=== PATIENT | female | born 1935 | race Caucasian/White ===

== ENCOUNTER 2020-04-14 15:03 | Inpatient (IN) ==
[2020-04-15] MEDS: *HR* OxyCODONE Immed Rel 5 MG TABLET PO PRN (04:19)
[2020-04-15] MEDS ORDERED: Lactulose Oral Soln 20 GM/30 ML UDC PO PRN (08:01)
[2020-04-15] MEDS: Folic Acid 1 MG TABLET PO SCH (08:34)
[2020-04-15] MEDS: Sennosides/Docusate Sodium TABLET PO SCH ×2 (08:34→20:32)
[2020-04-15] MEDS: GlipiZIDE 5 MG TABLET PO SCH ×2 (08:34→16:39)
[2020-04-15] MEDS: *HR* Pioglitazone 15 MG TABLET PO SCH (08:34)
[2020-04-15] MEDS: Cholecalciferol (D-3) 1,000 UNIT (25MCG) TABLET PO SCH (08:35)
[2020-04-15] MEDS: Aspirin Enteric Coated 325 MG Tablet PO SCH (08:35)
[2020-04-15] MEDS: Acetaminophen 325 MG TABLET PO PRN (08:35)
[2020-04-15 08:39] LABS: Basophils % 0.1 %; Eosinophils % 0.4 %; Hematocrit 26.7 % (35.3-44.9); Hemoglobin 8.7 g/dL (11.5-15.4); Immature Granulocytes % 0.8 % (0-4); Lymphocytes # 1.9 K/mcL (0.6-4.6); Lymphocytes % 25.8 %; Mean Corpuscular HGB Conc 32.6 g/dL (31.6-35.5); Mean Corpuscular Hemoglobin 29.5 pg (28.0-33.3); Mean Corpuscular Volume 90.5 fL (83.0-100.0); Mean Platelet Volume 9.9 fL (9.4-12.4); Monocytes # 0.7 K/mcL (0.0-1.3); Monocytes % 9.2 %; Neutrophils # 4.7 K/mcL (1.6-8.9); Platelet Count 169 K/mcL (140-400); Red Blood Count 2.95 M/mcL (3.82-4.97); Red Cell Distribution Width 15.4 % (11.5-14.5); Segmented Neutrophils % 63.7 %; White Blood Count 7.4 K/mcL (4.3-11.1)
[2020-04-15 08:52] LABS: Alanine Aminotransferase 3 Units/L (7-52); Albumin 2.4 g/dL (3.5-5.7); Albumin/Globulin Ratio 0.9 (1.1-2.2); Alkaline Phosphatase 59 Units/L (34-104); Aspartate Amino Transferase 17 Units/L (13-39); BUN/Creatinine Ratio 21 (6-26); Bilirubin,Total 0.6 mg/dL (0.3-1.0); Blood Urea Nitrogen 15 mg/dL (8-23); Calcium 7.4 mg/dL (8.6-10.3); Carbon Dioxide 28 mEq/L (23-29); Chloride 107 mEq/L (98-107); Globulin 2.8 g/dL (2.4-3.5); Glucose 120 mg/dL (70-105); Osmolality,Calculated 292 (280-300); Potassium 3.7 mEq/L (3.5-5.1); Sodium 140 mEq/L (136-145); Total Protein 5.2 g/dL (6.4-8.9); eGFR For African Americans > 60 (> 60); eGFR For Non-African Americans > 60 (> 60)
[2020-04-16] MEDS: GlipiZIDE 5 MG TABLET PO SCH ×2 (08:04→17:10)
[2020-04-16] MEDS: Sennosides/Docusate Sodium TABLET PO SCH ×2 (08:04→22:16)
[2020-04-16] MEDS: *HR* Pioglitazone 15 MG TABLET PO SCH (08:04)
[2020-04-16] MEDS: Aspirin Enteric Coated 325 MG Tablet PO SCH (08:05)
[2020-04-16] MEDS: Cholecalciferol (D-3) 1,000 UNIT (25MCG) TABLET PO SCH (08:05)
[2020-04-16] MEDS: Folic Acid 1 MG TABLET PO SCH (08:05)
[2020-04-16] MEDS: *HR* OxyCODONE Immed Rel 5 MG TABLET PO PRN (14:28)
[2020-04-17] MEDS: *HR* OxyCODONE Immed Rel 5 MG TABLET PO PRN ×2 (04:02→14:12)
[2020-04-17] MEDS ORDERED: NON-FORMULARY MEDICATION 1 EACH EACH (Alendronate Sodium [Fosamax] 70 MG) PO SCH (09:00)
[2020-04-17] MEDS: *HR* Pioglitazone 15 MG TABLET PO SCH (09:30)
[2020-04-17] MEDS: Folic Acid 1 MG TABLET PO SCH (09:30)
[2020-04-17] MEDS: GlipiZIDE 5 MG TABLET PO SCH ×2 (09:30→17:14)
[2020-04-17] MEDS: FLUoxetine 20 MG CAPSULE PO SCH (09:31)
[2020-04-17] MEDS: Aspirin Enteric Coated 325 MG Tablet PO SCH (09:31)
[2020-04-17] MEDS: Sennosides/Docusate Sodium TABLET PO SCH ×2 (09:31→19:58)
[2020-04-17] MEDS: Cholecalciferol (D-3) 1,000 UNIT (25MCG) TABLET PO SCH (09:31)
[2020-04-18] MEDS: *HR* OxyCODONE Immed Rel 5 MG TABLET PO PRN ×3 (05:59→21:53)
[2020-04-18] MEDS: *HR* Pioglitazone 15 MG TABLET PO SCH (08:21)
[2020-04-18] MEDS: Sennosides/Docusate Sodium TABLET PO SCH ×2 (08:22→21:53)
[2020-04-18] MEDS: GlipiZIDE 5 MG TABLET PO SCH ×2 (08:22→17:27)
[2020-04-18] MEDS: Cholecalciferol (D-3) 1,000 UNIT (25MCG) TABLET PO SCH (08:22)
[2020-04-18] MEDS: Folic Acid 1 MG TABLET PO SCH (08:22)
[2020-04-18] MEDS: Aspirin Enteric Coated 325 MG Tablet PO SCH (08:22)
[2020-04-19] MEDS: *HR* OxyCODONE Immed Rel 5 MG TABLET PO PRN ×2 (08:07→20:29)
[2020-04-19] MEDS: Aspirin Enteric Coated 325 MG Tablet PO SCH (08:07)
[2020-04-19] MEDS: GlipiZIDE 5 MG TABLET PO SCH ×2 (08:07→17:03)
[2020-04-19] MEDS: Sennosides/Docusate Sodium TABLET PO SCH ×2 (08:08→20:28)
[2020-04-19] MEDS: Folic Acid 1 MG TABLET PO SCH (08:08)
[2020-04-19] MEDS: *HR* Pioglitazone 15 MG TABLET PO SCH (08:08)
[2020-04-19] MEDS: Cholecalciferol (D-3) 1,000 UNIT (25MCG) TABLET PO SCH (08:08)
[2020-04-19] MEDS: FLUoxetine 20 MG CAPSULE PO SCH (08:08)
[2020-04-19 08:27] LABS: Basophils % 0.3 %; Eosinophils # 0.1 K/mcL (0.0-0.6); Eosinophils % 1.7 %; Hematocrit 27.1 % (35.3-44.9); Hemoglobin 8.5 g/dL (11.5-15.4); Immature Granulocytes % 0.6 % (0-4); Lymphocytes # 1.7 K/mcL (0.6-4.6); Lymphocytes % 24.5 %; Mean Corpuscular HGB Conc 31.4 g/dL (31.6-35.5); Mean Corpuscular Hemoglobin 28.5 pg (28.0-33.3); Mean Corpuscular Volume 90.9 fL (83.0-100.0); Mean Platelet Volume 9.7 fL (9.4-12.4); Monocytes # 0.8 K/mcL (0.0-1.3); Monocytes % 11.3 %; Neutrophils # 4.3 K/mcL (1.6-8.9); Platelet Count 189 K/mcL (140-400); Red Blood Count 2.98 M/mcL (3.82-4.97); Red Cell Distribution Width 15.9 % (11.5-14.5); Segmented Neutrophils % 61.6 %
[2020-04-19 08:51] LABS: BUN/Creatinine Ratio 30 (6-26); Blood Urea Nitrogen 26 mg/dL (8-23); Carbon Dioxide 28 mEq/L (23-29); Chloride 102 mEq/L (98-107); Glucose 63 mg/dL (70-105); Osmolality,Calculated 283 (280-300); Potassium 3.8 mEq/L (3.5-5.1); Sodium 135 mEq/L (136-145); eGFR For African Americans > 60 (> 60); eGFR For Non-African Americans > 60 (> 60)
[2020-04-19] MEDS: Acetaminophen 325 MG TABLET PO PRN (10:47)
[2020-04-20] MEDS: *HR* Pioglitazone 15 MG TABLET PO SCH (10:03)
[2020-04-20] MEDS: Sennosides/Docusate Sodium TABLET PO SCH ×2 (10:03→20:10)
[2020-04-20] MEDS: Aspirin Enteric Coated 325 MG Tablet PO SCH (10:03)
[2020-04-20] MEDS: Folic Acid 1 MG TABLET PO SCH (10:03)
[2020-04-20] MEDS: Cholecalciferol (D-3) 1,000 UNIT (25MCG) TABLET PO SCH (10:03)
[2020-04-20] MEDS: GlipiZIDE 5 MG TABLET PO SCH ×2 (10:03→17:54)
[2020-04-21] MEDS: Acetaminophen 325 MG TABLET PO PRN ×2 (01:01→20:21)
[2020-04-21] MEDS: Cholecalciferol (D-3) 1,000 UNIT (25MCG) TABLET PO SCH (08:25)
[2020-04-21] MEDS: Sennosides/Docusate Sodium TABLET PO SCH ×2 (08:25→20:21)
[2020-04-21] MEDS: GlipiZIDE 5 MG TABLET PO SCH ×2 (08:26→17:33)
[2020-04-21] MEDS: *HR* Pioglitazone 15 MG TABLET PO SCH (08:26)
[2020-04-21] MEDS: Aspirin Enteric Coated 325 MG Tablet PO SCH (08:26)
[2020-04-21] MEDS: Folic Acid 1 MG TABLET PO SCH (08:26)
[2020-04-21] MEDS: FLUoxetine 20 MG CAPSULE PO SCH (08:26)
[2020-04-21] MEDS ORDERED: *HR* Dextrose 50 % in Water (Vial) 50 ML VIAL IVP PRN (13:00)
[2020-04-21] MEDS ORDERED: Dextrose Gel 15 GM/37.5 ML TUBE PO PRN ×2 (13:00)
[2020-04-21] MEDS ORDERED: D5% in Water 1,000 ML IVC PRN (13:00)
[2020-04-21] MEDS: Insulin LISPRO 300 UNITS/3 ML VIAL SQ SCH (17:34)
[2020-04-22] MEDS: Insulin LISPRO 300 UNITS/3 ML VIAL SQ SCH ×3 (00:57→20:32)
[2020-04-22] MEDS: GlipiZIDE 5 MG TABLET PO SCH ×2 (07:51→17:59)
[2020-04-22] MEDS: Aspirin Enteric Coated 325 MG Tablet PO SCH (09:55)
[2020-04-22] MEDS: Folic Acid 1 MG TABLET PO SCH (09:55)
[2020-04-22] MEDS: FLUoxetine 20 MG CAPSULE PO SCH (09:55)
[2020-04-22] MEDS: *HR* Pioglitazone 15 MG TABLET PO SCH (09:55)
[2020-04-22] MEDS: Sennosides/Docusate Sodium TABLET PO SCH ×2 (09:55→20:25)
[2020-04-22] MEDS: Cholecalciferol (D-3) 1,000 UNIT (25MCG) TABLET PO SCH (09:55)
[2020-04-22] MEDS: *HR* OxyCODONE Immed Rel 5 MG TABLET PO PRN (18:03)
[2020-04-23] MEDS: Insulin LISPRO 300 UNITS/3 ML VIAL SQ SCH ×6 (04:35→21:31)
[2020-04-23 08:19] LABS: Basophils % 0.4 %; Eosinophils # 0.1 K/mcL (0.0-0.6); Eosinophils % 1.3 %; Hematocrit 26.8 % (35.3-44.9); Hemoglobin 8.3 g/dL (11.5-15.4); Immature Granulocytes % 0.5 % (0-4); Lymphocytes # 1.3 K/mcL (0.6-4.6); Lymphocytes % 23.1 %; Mean Corpuscular Hemoglobin 28.7 pg (28.0-33.3); Mean Corpuscular Volume 92.7 fL (83.0-100.0); Monocytes # 0.5 K/mcL (0.0-1.3); Monocytes % 9.7 %; Neutrophils # 3.6 K/mcL (1.6-8.9); Platelet Count 179 K/mcL (140-400); Red Blood Count 2.89 M/mcL (3.82-4.97); Red Cell Distribution Width 16.4 % (11.5-14.5); White Blood Count 5.5 K/mcL (4.3-11.1)
[2020-04-23 08:34] LABS: BUN/Creatinine Ratio 23 (6-26); Blood Urea Nitrogen 18 mg/dL (8-23); Calcium 7.7 mg/dL (8.6-10.3); Carbon Dioxide 27 mEq/L (23-29); Chloride 106 mEq/L (98-107); Glucose 65 mg/dL (70-105); Osmolality,Calculated 286 (280-300); Potassium 3.9 mEq/L (3.5-5.1); Sodium 138 mEq/L (136-145); eGFR For African Americans > 60 (> 60); eGFR For Non-African Americans > 60 (> 60)
[2020-04-23] MEDS: *HR* Pioglitazone 15 MG TABLET PO SCH (08:38)
[2020-04-23] MEDS: Cholecalciferol (D-3) 1,000 UNIT (25MCG) TABLET PO SCH (08:38)
[2020-04-23] MEDS: FLUoxetine 20 MG CAPSULE PO SCH (08:38)
[2020-04-23] MEDS: Aspirin Enteric Coated 325 MG Tablet PO SCH (08:38)
[2020-04-23] MEDS: Folic Acid 1 MG TABLET PO SCH (08:39)
[2020-04-23] MEDS: Sennosides/Docusate Sodium TABLET PO SCH ×2 (08:39→20:22)
[2020-04-23] MEDS: GlipiZIDE 5 MG TABLET PO SCH ×2 (08:39→17:34)
[2020-04-24] MEDS: *HR* OxyCODONE Immed Rel 5 MG TABLET PO PRN (03:26)
[2020-04-24] MEDS: Insulin LISPRO 300 UNITS/3 ML VIAL SQ SCH ×4 (08:02→21:07)
[2020-04-24] MEDS: *HR* Pioglitazone 15 MG TABLET PO SCH (08:06)
[2020-04-24] MEDS: FLUoxetine 20 MG CAPSULE PO SCH (08:06)
[2020-04-24] MEDS: Folic Acid 1 MG TABLET PO SCH (08:07)
[2020-04-24] MEDS: Sennosides/Docusate Sodium TABLET PO SCH ×2 (08:07→21:42)
[2020-04-24] MEDS: Cholecalciferol (D-3) 1,000 UNIT (25MCG) TABLET PO SCH (08:07)
[2020-04-24] MEDS: Aspirin Enteric Coated 325 MG Tablet PO SCH (08:07)
[2020-04-24] MEDS: GlipiZIDE 5 MG TABLET PO SCH ×2 (08:08→16:58)
[2020-04-24] MEDS: Acetaminophen 325 MG TABLET PO PRN (21:47)
[2020-04-25] MEDS: Insulin LISPRO 300 UNITS/3 ML VIAL SQ SCH ×4 (09:16→21:52)
[2020-04-25] MEDS: *HR* Pioglitazone 15 MG TABLET PO SCH (09:17)
[2020-04-25] MEDS: FLUoxetine 20 MG CAPSULE PO SCH (09:18)
[2020-04-25] MEDS: Aspirin Enteric Coated 325 MG Tablet PO SCH (09:18)
[2020-04-25] MEDS: Cholecalciferol (D-3) 1,000 UNIT (25MCG) TABLET PO SCH (09:18)
[2020-04-25] MEDS: GlipiZIDE 5 MG TABLET PO SCH ×2 (09:18→18:08)
[2020-04-25] MEDS: Folic Acid 1 MG TABLET PO SCH (09:18)
[2020-04-25] MEDS: Sennosides/Docusate Sodium TABLET PO SCH ×2 (09:18→20:04)
[2020-04-25] MEDS: *HR* OxyCODONE Immed Rel 5 MG TABLET PO PRN (09:24)
[2020-04-26] MEDS: Insulin LISPRO 300 UNITS/3 ML VIAL SQ SCH ×4 (07:23→21:44)
[2020-04-26] MEDS: GlipiZIDE 5 MG TABLET PO SCH ×2 (07:58→16:16)
[2020-04-26] MEDS: FLUoxetine 20 MG CAPSULE PO SCH (08:00)
[2020-04-26] MEDS: Folic Acid 1 MG TABLET PO SCH (08:01)
[2020-04-26] MEDS: *HR* Pioglitazone 15 MG TABLET PO SCH (08:01)
[2020-04-26] MEDS: Sennosides/Docusate Sodium TABLET PO SCH ×2 (08:01→21:43)
[2020-04-26] MEDS: Cholecalciferol (D-3) 1,000 UNIT (25MCG) TABLET PO SCH (08:02)
[2020-04-26] MEDS: Aspirin Enteric Coated 325 MG Tablet PO SCH (08:02)
[2020-04-26 16:45] LABS: Bilirubin,Urine Negative (Negative); Blood,Urine Moderate (Negative); Clarity,Urine Cloudy (Clear); Color,Urine Yellow (Yellow); Glucose,Urine (UA) Normal (Normal); Ketones,Urine Negative (Negative); Leukocyte Esterase,Urine Large (Negative); Nitrite,Urine Positive (Negative); Protein,Urine 100 mg/dL (Neg-Trace); Specific Gravity,Urine 1.025 (1.010-1.025); Urobilinogen,Urine Normal (Normal)
[2020-04-26 16:59] LABS: Bacteria,Urine Many per hpf (None-Few); RBC,Urine 15-30 per hpf (0-3); Squamous Epithelial Cell,Urine None Seen per hpf (None-Few); WBC,Urine TNTC per hpf (0-3)
[2020-04-27] MEDS: Insulin LISPRO 300 UNITS/3 ML VIAL SQ SCH ×4 (07:47→22:35)
[2020-04-27] MEDS: Aspirin Enteric Coated 325 MG Tablet PO SCH (08:24)
[2020-04-27] MEDS: Folic Acid 1 MG TABLET PO SCH (08:25)
[2020-04-27] MEDS: GlipiZIDE 5 MG TABLET PO SCH (08:26)
[2020-04-27] MEDS: *HR* Pioglitazone 15 MG TABLET PO SCH (08:26)
[2020-04-27] MEDS: Multivit/Ca/Min/Fe/FA 1 TAB TABLET PO SCH (08:26)
[2020-04-27] MEDS: Cholecalciferol (D-3) 1,000 UNIT (25MCG) TABLET PO SCH (08:26)
[2020-04-27] MEDS: Sennosides/Docusate Sodium TABLET PO SCH ×2 (08:26→22:36)
[2020-04-27] MEDS: FLUoxetine 20 MG CAPSULE PO SCH (08:26)
[2020-04-27 09:55] LABS: Basophils % 0.5 %; Eosinophils # 0.1 K/mcL (0.0-0.6); Eosinophils % 1.7 %; Hemoglobin 8.7 g/dL (11.5-15.4); Immature Granulocytes % 0.2 % (0-4); Lymphocytes # 1.4 K/mcL (0.6-4.6); Mean Corpuscular HGB Conc 31.1 g/dL (31.6-35.5); Mean Corpuscular Hemoglobin 28.6 pg (28.0-33.3); Mean Corpuscular Volume 92.1 fL (83.0-100.0); Mean Platelet Volume 9.6 fL (9.4-12.4); Monocytes # 0.8 K/mcL (0.0-1.3); Neutrophils # 3.5 K/mcL (1.6-8.9); Platelet Count 243 K/mcL (140-400); Red Blood Count 3.04 M/mcL (3.82-4.97); Red Cell Distribution Width 16.4 % (11.5-14.5); Segmented Neutrophils % 60.6 %; White Blood Count 5.8 K/mcL (4.3-11.1)
[2020-04-27 10:12] LABS: Albumin 2.6 g/dL (3.5-5.7); BUN/Creatinine Ratio 18 (6-26); Blood Urea Nitrogen 17 mg/dL (8-23); Calcium 7.9 mg/dL (8.6-10.3); Carbon Dioxide 26 mEq/L (23-29); Chloride 102 mEq/L (98-107); Glucose 153 mg/dL (70-105); Osmolality,Calculated 283 (280-300); Potassium 4.4 mEq/L (3.5-5.1); Sodium 134 mEq/L (136-145); eGFR For African Americans > 60 (> 60); eGFR For Non-African Americans 58 (> 60)
[2020-04-28] MEDS: Insulin LISPRO 300 UNITS/3 ML VIAL SQ SCH ×4 (08:03→21:56)
[2020-04-28] MEDS: FLUoxetine 20 MG CAPSULE PO SCH (09:52)
[2020-04-28] MEDS: Multivit/Ca/Min/Fe/FA 1 TAB TABLET PO SCH (09:53)
[2020-04-28] MEDS: Aspirin Enteric Coated 325 MG Tablet PO SCH (09:53)
[2020-04-28] MEDS: Folic Acid 1 MG TABLET PO SCH (09:53)
[2020-04-28] MEDS: *HR* Pioglitazone 15 MG TABLET PO SCH (09:53)
[2020-04-28] MEDS: Sennosides/Docusate Sodium TABLET PO SCH ×2 (09:53→21:55)
[2020-04-28] MEDS: Cholecalciferol (D-3) 1,000 UNIT (25MCG) TABLET PO SCH (09:53)
[2020-04-29] MEDS: Insulin LISPRO 300 UNITS/3 ML VIAL SQ SCH ×4 (09:13→20:15)
[2020-04-29] MEDS: *HR* Pioglitazone 15 MG TABLET PO SCH (10:34)
[2020-04-29] MEDS: Cholecalciferol (D-3) 1,000 UNIT (25MCG) TABLET PO SCH (10:34)
[2020-04-29] MEDS: Folic Acid 1 MG TABLET PO SCH (10:35)
[2020-04-29] MEDS: Multivit/Ca/Min/Fe/FA 1 TAB TABLET PO SCH (10:35)
[2020-04-29] MEDS: Sennosides/Docusate Sodium TABLET PO SCH ×2 (10:35→20:08)
[2020-04-29] MEDS: FLUoxetine 20 MG CAPSULE PO SCH (10:35)
[2020-04-29] MEDS: Aspirin Enteric Coated 325 MG Tablet PO SCH (10:35)
[2020-04-29] MEDS: Nystatin POWDER 30 GM BOTTLE TP SCH ×2 (12:24→21:18)
[2020-04-30] MEDS: Insulin LISPRO 300 UNITS/3 ML VIAL SQ SCH ×4 (07:33→21:08)
[2020-04-30] MEDS: Aspirin Enteric Coated 325 MG Tablet PO SCH (08:20)
[2020-04-30] MEDS: *HR* Pioglitazone 15 MG TABLET PO SCH (08:20)
[2020-04-30] MEDS: Folic Acid 1 MG TABLET PO SCH (08:20)
[2020-04-30] MEDS: Cholecalciferol (D-3) 1,000 UNIT (25MCG) TABLET PO SCH (08:20)
[2020-04-30] MEDS: Multivit/Ca/Min/Fe/FA 1 TAB TABLET PO SCH (08:20)
[2020-04-30] MEDS: FLUoxetine 20 MG CAPSULE PO SCH (08:20)
[2020-04-30] MEDS: Nystatin POWDER 30 GM BOTTLE TP SCH ×2 (08:21→20:49)
[2020-04-30] MEDS: Sennosides/Docusate Sodium TABLET PO SCH ×2 (08:21→20:48)
[2020-04-30] MEDS: Acetaminophen 325 MG TABLET PO PRN (20:52)
[2020-05-01 05:41] LABS: Hematocrit 26.7 % (35.3-44.9); Hemoglobin 8.2 g/dL (11.5-15.4); Mean Corpuscular HGB Conc 30.7 g/dL (31.6-35.5); Mean Corpuscular Hemoglobin 28.7 pg (28.0-33.3); Mean Corpuscular Volume 93.4 fL (83.0-100.0); Mean Platelet Volume 9.4 fL (9.4-12.4); Platelet Count 195 K/mcL (140-400); Red Blood Count 2.86 M/mcL (3.82-4.97); Red Cell Distribution Width 16.3 % (11.5-14.5); White Blood Count 3.6 K/mcL (4.3-11.1)
[2020-05-01 05:57] LABS: BUN/Creatinine Ratio 24 (6-26); Blood Urea Nitrogen 23 mg/dL (8-23); Calcium 7.8 mg/dL (8.6-10.3); Carbon Dioxide 28 mEq/L (23-29); Chloride 107 mEq/L (98-107); Glucose 101 mg/dL (70-105); Osmolality,Calculated 292 (280-300); Potassium 4.4 mEq/L (3.5-5.1); Sodium 139 mEq/L (136-145); eGFR For African Americans > 60 (> 60); eGFR For Non-African Americans 55 (> 60)
[2020-05-01] MEDS: Folic Acid 1 MG TABLET PO SCH (08:26)
[2020-05-01] MEDS: Aspirin Enteric Coated 325 MG Tablet PO SCH (08:26)
[2020-05-01] MEDS: FLUoxetine 20 MG CAPSULE PO SCH (08:26)
[2020-05-01] MEDS: Sennosides/Docusate Sodium TABLET PO SCH ×2 (08:26→19:51)
[2020-05-01] MEDS: Cholecalciferol (D-3) 1,000 UNIT (25MCG) TABLET PO SCH (08:26)
[2020-05-01] MEDS: *HR* Pioglitazone 15 MG TABLET PO SCH (08:26)
[2020-05-01] MEDS: Multivit/Ca/Min/Fe/FA 1 TAB TABLET PO SCH (08:26)
[2020-05-01] MEDS: Insulin LISPRO 300 UNITS/3 ML VIAL SQ SCH ×4 (08:27→22:00)
[2020-05-01] MEDS: Nystatin POWDER 30 GM BOTTLE TP SCH ×2 (08:29→19:52)
[2020-05-02] MEDS: Insulin LISPRO 300 UNITS/3 ML VIAL SQ SCH ×4 (07:41→19:46)
[2020-05-02] MEDS: Multivit/Ca/Min/Fe/FA 1 TAB TABLET PO SCH (08:35)
[2020-05-02] MEDS: Sennosides/Docusate Sodium TABLET PO SCH ×2 (08:35→20:29)
[2020-05-02] MEDS: *HR* Pioglitazone 15 MG TABLET PO SCH (08:35)
[2020-05-02] MEDS: Cholecalciferol (D-3) 1,000 UNIT (25MCG) TABLET PO SCH (08:35)
[2020-05-02] MEDS: Folic Acid 1 MG TABLET PO SCH (08:36)
[2020-05-02] MEDS: FLUoxetine 20 MG CAPSULE PO SCH (08:36)
[2020-05-02] MEDS: Aspirin Enteric Coated 325 MG Tablet PO SCH (08:36)
[2020-05-02] MEDS: Nystatin POWDER 30 GM BOTTLE TP SCH ×2 (08:41→20:30)
[2020-05-03] MEDS: Multivit/Ca/Min/Fe/FA 1 TAB TABLET PO SCH (08:16)
[2020-05-03] MEDS: FLUoxetine 20 MG CAPSULE PO SCH (08:16)
[2020-05-03] MEDS: Aspirin Enteric Coated 325 MG Tablet PO SCH (08:16)
[2020-05-03] MEDS: Cholecalciferol (D-3) 1,000 UNIT (25MCG) TABLET PO SCH (08:16)
[2020-05-03] MEDS: Insulin LISPRO 300 UNITS/3 ML VIAL SQ SCH ×4 (08:16→20:18)
[2020-05-03] MEDS: Sennosides/Docusate Sodium TABLET PO SCH ×2 (08:17→20:14)
[2020-05-03] MEDS: Nystatin POWDER 30 GM BOTTLE TP SCH ×2 (08:17→20:14)
[2020-05-03] MEDS: *HR* Pioglitazone 15 MG TABLET PO SCH (08:17)
[2020-05-03] MEDS: Folic Acid 1 MG TABLET PO SCH (08:17)
[2020-05-04] MEDS: Insulin LISPRO 300 UNITS/3 ML VIAL SQ SCH ×4 (08:22→20:14)
[2020-05-04] MEDS: *HR* Pioglitazone 15 MG TABLET PO SCH (08:25)
[2020-05-04] MEDS: Aspirin Enteric Coated 325 MG Tablet PO SCH (08:25)
[2020-05-04] MEDS: Multivit/Ca/Min/Fe/FA 1 TAB TABLET PO SCH (08:26)
[2020-05-04] MEDS: Folic Acid 1 MG TABLET PO SCH (08:26)
[2020-05-04] MEDS: Sennosides/Docusate Sodium TABLET PO SCH ×2 (08:26→20:31)
[2020-05-04] MEDS: Cholecalciferol (D-3) 1,000 UNIT (25MCG) TABLET PO SCH (08:26)
[2020-05-04] MEDS: Nystatin POWDER 30 GM BOTTLE TP SCH ×2 (08:26→20:32)
[2020-05-04] MEDS: FLUoxetine 20 MG CAPSULE PO SCH (08:26)
[2020-05-05] MEDS: Multivit/Ca/Min/Fe/FA 1 TAB TABLET PO SCH (08:39)
[2020-05-05] MEDS: *HR* Pioglitazone 15 MG TABLET PO SCH (08:39)
[2020-05-05] MEDS: Cholecalciferol (D-3) 1,000 UNIT (25MCG) TABLET PO SCH (08:39)
[2020-05-05] MEDS: Folic Acid 1 MG TABLET PO SCH (08:39)
[2020-05-05] MEDS: Insulin LISPRO 300 UNITS/3 ML VIAL SQ SCH ×4 (08:39→21:23)
[2020-05-05] MEDS: Aspirin Enteric Coated 325 MG Tablet PO SCH (08:39)
[2020-05-05] MEDS: FLUoxetine 20 MG CAPSULE PO SCH (08:39)
[2020-05-05] MEDS: Nystatin POWDER 30 GM BOTTLE TP SCH ×2 (08:42→21:24)
[2020-05-05] MEDS: Sennosides/Docusate Sodium TABLET PO SCH ×2 (08:43→21:23)
[2020-05-06 06:28] LABS: Basophils % 0.5 %; Eosinophils # 0.1 K/mcL (0.0-0.6); Eosinophils % 2.2 %; Hematocrit 27.4 % (35.3-44.9); Hemoglobin 8.3 g/dL (11.5-15.4); Immature Granulocytes % 0.2 % (0-4); Lymphocytes # 1.6 K/mcL (0.6-4.6); Lymphocytes % 39.3 %; Mean Corpuscular HGB Conc 30.3 g/dL (31.6-35.5); Mean Corpuscular Hemoglobin 28.6 pg (28.0-33.3); Mean Corpuscular Volume 94.5 fL (83.0-100.0); Mean Platelet Volume 9.5 fL (9.4-12.4); Monocytes # 0.5 K/mcL (0.0-1.3); Monocytes % 11.5 %; Neutrophils # 1.9 K/mcL (1.6-8.9); Platelet Count 175 K/mcL (140-400); Red Cell Distribution Width 16.8 % (11.5-14.5); Segmented Neutrophils % 46.3 %; White Blood Count 4.1 K/mcL (4.3-11.1)
[2020-05-06 07:23] LABS: BUN/Creatinine Ratio 27 (6-26); Blood Urea Nitrogen 25 mg/dL (8-23); Carbon Dioxide 26 mEq/L (23-29); Chloride 106 mEq/L (98-107); Glucose 98 mg/dL (70-105); Osmolality,Calculated 286 (280-300); Potassium 3.9 mEq/L (3.5-5.1); Sodium 136 mEq/L (136-145); eGFR For African Americans > 60 (> 60); eGFR For Non-African Americans 58 (> 60)
[2020-05-06] MEDS: Insulin LISPRO 300 UNITS/3 ML VIAL SQ SCH ×4 (07:29→20:19)
[2020-05-06] MEDS: Multivit/Ca/Min/Fe/FA 1 TAB TABLET PO SCH (08:18)
[2020-05-06] MEDS: Aspirin Enteric Coated 325 MG Tablet PO SCH (08:19)
[2020-05-06] MEDS: Cholecalciferol (D-3) 1,000 UNIT (25MCG) TABLET PO SCH (08:19)
[2020-05-06] MEDS: FLUoxetine 20 MG CAPSULE PO SCH (08:19)
[2020-05-06] MEDS: Folic Acid 1 MG TABLET PO SCH (08:19)
[2020-05-06] MEDS: *HR* Pioglitazone 15 MG TABLET PO SCH (08:19)
[2020-05-06] MEDS: Sennosides/Docusate Sodium TABLET PO SCH ×2 (08:19→19:45)
[2020-05-06] MEDS: Nystatin POWDER 30 GM BOTTLE TP SCH ×2 (08:20→19:45)
[2020-05-07] MEDS: Insulin LISPRO 300 UNITS/3 ML VIAL SQ SCH ×4 (07:28→19:40)
[2020-05-07] MEDS: Sennosides/Docusate Sodium TABLET PO SCH ×2 (08:07→20:23)
[2020-05-07] MEDS: Cholecalciferol (D-3) 1,000 UNIT (25MCG) TABLET PO SCH (08:07)
[2020-05-07] MEDS: Folic Acid 1 MG TABLET PO SCH (08:07)
[2020-05-07] MEDS: *HR* Pioglitazone 15 MG TABLET PO SCH (08:07)
[2020-05-07] MEDS: Multivit/Ca/Min/Fe/FA 1 TAB TABLET PO SCH (08:07)
[2020-05-07] MEDS: FLUoxetine 20 MG CAPSULE PO SCH (08:07)
[2020-05-07] MEDS: Aspirin Enteric Coated 325 MG Tablet PO SCH (08:07)
[2020-05-07] MEDS: Nystatin POWDER 30 GM BOTTLE TP SCH ×2 (08:08→20:27)
[2020-05-08] MEDS: Insulin LISPRO 300 UNITS/3 ML VIAL SQ SCH ×4 (08:34→20:15)
[2020-05-08] MEDS: *HR* Pioglitazone 15 MG TABLET PO SCH (08:38)
[2020-05-08] MEDS: Folic Acid 1 MG TABLET PO SCH (08:38)
[2020-05-08] MEDS: Cholecalciferol (D-3) 1,000 UNIT (25MCG) TABLET PO SCH (08:38)
[2020-05-08] MEDS: Multivit/Ca/Min/Fe/FA 1 TAB TABLET PO SCH (08:38)
[2020-05-08] MEDS: FLUoxetine 20 MG CAPSULE PO SCH (08:38)
[2020-05-08] MEDS: Aspirin Enteric Coated 325 MG Tablet PO SCH (08:38)
[2020-05-08] MEDS: Sennosides/Docusate Sodium TABLET PO SCH ×2 (08:38→20:04)
[2020-05-08] MEDS: Nystatin POWDER 30 GM BOTTLE TP SCH ×2 (13:10→20:06)
[2020-05-09] MEDS: Insulin LISPRO 300 UNITS/3 ML VIAL SQ SCH ×4 (07:49→20:07)
[2020-05-09] MEDS: Folic Acid 1 MG TABLET PO SCH (08:11)
[2020-05-09] MEDS: *HR* Pioglitazone 15 MG TABLET PO SCH (08:11)
[2020-05-09] MEDS: Cholecalciferol (D-3) 1,000 UNIT (25MCG) TABLET PO SCH (08:11)
[2020-05-09] MEDS: Aspirin Enteric Coated 325 MG Tablet PO SCH (08:12)
[2020-05-09] MEDS: Multivit/Ca/Min/Fe/FA 1 TAB TABLET PO SCH (08:12)
[2020-05-09] MEDS: FLUoxetine 20 MG CAPSULE PO SCH (08:12)
[2020-05-09] MEDS: Sennosides/Docusate Sodium TABLET PO SCH ×2 (08:12→20:06)
[2020-05-09] MEDS: Nystatin POWDER 30 GM BOTTLE TP SCH ×2 (08:12→20:08)
[2020-05-10] MEDS: Insulin LISPRO 300 UNITS/3 ML VIAL SQ SCH ×4 (07:28→20:12)
[2020-05-10] MEDS: Folic Acid 1 MG TABLET PO SCH (07:58)
[2020-05-10] MEDS: Cholecalciferol (D-3) 1,000 UNIT (25MCG) TABLET PO SCH (07:58)
[2020-05-10] MEDS: Sennosides/Docusate Sodium TABLET PO SCH ×2 (07:58→20:04)
[2020-05-10] MEDS: Multivit/Ca/Min/Fe/FA 1 TAB TABLET PO SCH (07:59)
[2020-05-10] MEDS: Nystatin POWDER 30 GM BOTTLE TP SCH ×2 (07:59→21:18)
[2020-05-10] MEDS: *HR* Pioglitazone 15 MG TABLET PO SCH (07:59)
[2020-05-10] MEDS: FLUoxetine 20 MG CAPSULE PO SCH (07:59)
[2020-05-10] MEDS: Aspirin Enteric Coated 325 MG Tablet PO SCH (07:59)
[2020-05-11] MEDS: Insulin LISPRO 300 UNITS/3 ML VIAL SQ SCH ×4 (08:19→20:37)
[2020-05-11] MEDS: Multivit/Ca/Min/Fe/FA 1 TAB TABLET PO SCH (08:33)
[2020-05-11] MEDS: Cholecalciferol (D-3) 1,000 UNIT (25MCG) TABLET PO SCH (08:33)
[2020-05-11] MEDS: *HR* Pioglitazone 15 MG TABLET PO SCH (08:33)
[2020-05-11] MEDS: FLUoxetine 20 MG CAPSULE PO SCH (08:33)
[2020-05-11] MEDS: Folic Acid 1 MG TABLET PO SCH (08:33)
[2020-05-11] MEDS: Sennosides/Docusate Sodium TABLET PO SCH ×2 (08:33→20:36)
[2020-05-11] MEDS: Aspirin Enteric Coated 325 MG Tablet PO SCH (08:33)
[2020-05-11] MEDS: Nystatin POWDER 30 GM BOTTLE TP SCH ×2 (08:34→20:36)
[2020-05-12] MEDS: Insulin LISPRO 300 UNITS/3 ML VIAL SQ SCH ×4 (08:00→20:08)
[2020-05-12] MEDS: Aspirin Enteric Coated 325 MG Tablet PO SCH (08:29)
[2020-05-12] MEDS: FLUoxetine 20 MG CAPSULE PO SCH (08:29)
[2020-05-12] MEDS: Folic Acid 1 MG TABLET PO SCH (08:29)
[2020-05-12] MEDS: Multivit/Ca/Min/Fe/FA 1 TAB TABLET PO SCH (08:29)
[2020-05-12] MEDS: Sennosides/Docusate Sodium TABLET PO SCH ×2 (08:29→20:04)
[2020-05-12] MEDS: *HR* Pioglitazone 15 MG TABLET PO SCH (08:29)
[2020-05-12] MEDS: Cholecalciferol (D-3) 1,000 UNIT (25MCG) TABLET PO SCH (08:29)
[2020-05-12] MEDS: Nystatin POWDER 30 GM BOTTLE TP SCH ×2 (14:40→20:07)
[2020-05-13] MEDS: Insulin LISPRO 300 UNITS/3 ML VIAL SQ SCH ×4 (08:44→20:13)
[2020-05-13] MEDS: *HR* Pioglitazone 15 MG TABLET PO SCH (08:47)
[2020-05-13] MEDS: Cholecalciferol (D-3) 1,000 UNIT (25MCG) TABLET PO SCH (08:48)
[2020-05-13] MEDS: FLUoxetine 20 MG CAPSULE PO SCH (08:48)
[2020-05-13] MEDS: Folic Acid 1 MG TABLET PO SCH (08:48)
[2020-05-13] MEDS: Multivit/Ca/Min/Fe/FA 1 TAB TABLET PO SCH (08:48)
[2020-05-13] MEDS: Aspirin Enteric Coated 325 MG Tablet PO SCH (08:48)
[2020-05-13] MEDS: Nystatin POWDER 30 GM BOTTLE TP SCH ×2 (08:50→20:13)
[2020-05-13] MEDS: Sennosides/Docusate Sodium TABLET PO SCH ×2 (08:50→20:12)
[2020-05-13] MEDS: Acetaminophen 325 MG TABLET PO PRN (20:23)
[2020-05-14] MEDS: Insulin LISPRO 300 UNITS/3 ML VIAL SQ SCH ×4 (08:59→20:49)
[2020-05-14] MEDS: Cholecalciferol (D-3) 1,000 UNIT (25MCG) TABLET PO SCH (09:07)
[2020-05-14] MEDS: *HR* Pioglitazone 15 MG TABLET PO SCH (09:07)
[2020-05-14] MEDS: FLUoxetine 20 MG CAPSULE PO SCH (09:08)
[2020-05-14] MEDS: Nystatin POWDER 30 GM BOTTLE TP SCH ×2 (09:08→20:53)
[2020-05-14] MEDS: Folic Acid 1 MG TABLET PO SCH (09:08)
[2020-05-14] MEDS: Multivit/Ca/Min/Fe/FA 1 TAB TABLET PO SCH (09:08)
[2020-05-14] MEDS: Sennosides/Docusate Sodium TABLET PO SCH ×2 (09:08→20:49)
[2020-05-14] MEDS: Aspirin Enteric Coated 325 MG Tablet PO SCH (09:08)
[2020-05-15] MEDS: Insulin LISPRO 300 UNITS/3 ML VIAL SQ SCH ×4 (08:13→19:33)
[2020-05-15] MEDS: Aspirin Enteric Coated 325 MG Tablet PO SCH (08:14)
[2020-05-15] MEDS: Folic Acid 1 MG TABLET PO SCH (08:14)
[2020-05-15] MEDS: *HR* Pioglitazone 15 MG TABLET PO SCH (08:14)
[2020-05-15] MEDS: Nystatin POWDER 30 GM BOTTLE TP SCH ×2 (08:15→19:31)
[2020-05-15] MEDS: Multivit/Ca/Min/Fe/FA 1 TAB TABLET PO SCH (08:15)
[2020-05-15] MEDS: FLUoxetine 20 MG CAPSULE PO SCH (08:15)
[2020-05-15] MEDS: Sennosides/Docusate Sodium TABLET PO SCH (08:15)
[2020-05-15] MEDS: Cholecalciferol (D-3) 1,000 UNIT (25MCG) TABLET PO SCH (08:16)
[2020-05-16] MEDS: *HR* Pioglitazone 15 MG TABLET PO SCH (07:30)
[2020-05-16] MEDS: Insulin LISPRO 300 UNITS/3 ML VIAL SQ SCH ×4 (07:39→21:00)
[2020-05-16] MEDS: Folic Acid 1 MG TABLET PO SCH (07:41)
[2020-05-16] MEDS: FLUoxetine 20 MG CAPSULE PO SCH (07:41)
[2020-05-16] MEDS: Multivit/Ca/Min/Fe/FA 1 TAB TABLET PO SCH (07:41)
[2020-05-16] MEDS: Cholecalciferol (D-3) 1,000 UNIT (25MCG) TABLET PO SCH (07:41)
[2020-05-16] MEDS: Aspirin Enteric Coated 325 MG Tablet PO SCH (07:41)
[2020-05-16] MEDS: Nystatin POWDER 30 GM BOTTLE TP SCH ×2 (10:48→21:00)
[2020-05-16 12:27] LABS: Basophils % 0.4 %; Eosinophils % 0.8 %; Hematocrit 27.7 % (35.3-44.9); Hemoglobin 8.6 g/dL (11.5-15.4); Immature Granulocytes % 0.2 % (0-4); Lymphocytes # 1.5 K/mcL (0.6-4.6); Lymphocytes % 29.8 %; Mean Corpuscular Hemoglobin 28.4 pg (28.0-33.3); Mean Corpuscular Volume 91.4 fL (83.0-100.0); Mean Platelet Volume 9.3 fL (9.4-12.4); Monocytes # 0.6 K/mcL (0.0-1.3); Monocytes % 12.1 %; Neutrophils # 2.9 K/mcL (1.6-8.9); Platelet Count 129 K/mcL (140-400); Red Blood Count 3.03 M/mcL (3.82-4.97); Red Cell Distribution Width 16.4 % (11.5-14.5); Segmented Neutrophils % 56.7 %
[2020-05-16 12:41] LABS: Calcium 8.1 mg/dL (8.6-10.3); Potassium 4.4 mEq/L (3.5-5.1)
[2020-05-16 22:58] LABS: Bilirubin,Urine Negative (Negative); Blood,Urine Moderate (Negative); Clarity,Urine Cloudy (Clear); Glucose,Urine (UA) Normal (Normal); Ketones,Urine Negative (Negative); Leukocyte Esterase,Urine Small (Negative); Nitrite,Urine Negative (Negative); PH,Urine 6.5 pH Units (5.0-8.0); Protein,Urine 100 mg/dL (Neg-Trace); Specific Gravity,Urine 1.025 (1.010-1.025); Urobilinogen,Urine Normal (Normal)
[2020-05-16 23:14] LABS: Color,Urine Light Yellow (Yellow)
[2020-05-16 23:16] LABS: Bacteria,Urine Few per hpf (None-Few); Mucus,Urine Few per lpf (None-Few); RBC,Urine 15-30 per hpf (0-3); Squamous Epithelial Cell,Urine Few per hpf (None-Few); WBC,Urine 30-50 per hpf (0-3)
[2020-05-17] MEDS: Insulin LISPRO 300 UNITS/3 ML VIAL SQ SCH ×4 (08:13→20:21)
[2020-05-17] MEDS: *HR* Pioglitazone 15 MG TABLET PO SCH (08:21)
[2020-05-17] MEDS: Folic Acid 1 MG TABLET PO SCH (08:22)
[2020-05-17] MEDS: Cholecalciferol (D-3) 1,000 UNIT (25MCG) TABLET PO SCH (08:22)
[2020-05-17] MEDS: Aspirin Enteric Coated 325 MG Tablet PO SCH (08:22)
[2020-05-17] MEDS: FLUoxetine 20 MG CAPSULE PO SCH (08:22)
[2020-05-17] MEDS: Acetaminophen 325 MG TABLET PO PRN (08:23)
[2020-05-17] MEDS: Multivit/Ca/Min/Fe/FA 1 TAB TABLET PO SCH (08:24)
[2020-05-17] MEDS: Nystatin POWDER 30 GM BOTTLE TP SCH ×2 (08:24→20:22)
[2020-05-17 17:23] LABS: Adenovirus Not Detected (Not Detect); Bordetella Pertussis Not Detected (Not Detect); Chlamydophila pneumoniae Not Detected (Not Detect); Coronavirus 229E Not Detected (Not Detect); Coronavirus HKU1 Not Detected (Not Detect); Coronavirus NL63 Not Detected (Not Detect); Coronavirus OC43 Not Detected (Not Detect); Human Metapneumovirus Not Detected (Not Detect); Human Rhinovirus/Enterovirus Not Detected (Not Detect); Influenza A Subtype 2009 H1 Not Detected (Not Detect); Influenza B Not Detected (Not Detect); Mycoplasma pneumoniae Not Detected (Not Detect); Parainfluenza Virus 1 Not Detected (Not Detect); Parainfluenza Virus 2 Not Detected (Not Detect); Parainfluenza Virus 3 Not Detected (Not Detect); Parainfluenza Virus 4 Not Detected (Not Detect); Respiratory Syncytial Virus Not Detected (Not Detect); SARS-CoV-2 Not Detected (Not Detect)
[2020-05-18] MEDS: FLUoxetine 20 MG CAPSULE PO SCH (08:12)
[2020-05-18] MEDS: Aspirin Enteric Coated 325 MG Tablet PO SCH (08:12)
[2020-05-18] MEDS: *HR* Pioglitazone 15 MG TABLET PO SCH (08:12)
[2020-05-18] MEDS: Cholecalciferol (D-3) 1,000 UNIT (25MCG) TABLET PO SCH (08:12)
[2020-05-18] MEDS: Multivit/Ca/Min/Fe/FA 1 TAB TABLET PO SCH (08:13)
[2020-05-18] MEDS: Insulin LISPRO 300 UNITS/3 ML VIAL SQ SCH ×4 (08:13→20:31)
[2020-05-18] MEDS: Nystatin POWDER 30 GM BOTTLE TP SCH ×2 (08:13→20:29)
[2020-05-18] MEDS: Folic Acid 1 MG TABLET PO SCH (08:13)
[2020-05-19] MEDS: Insulin LISPRO 300 UNITS/3 ML VIAL SQ SCH ×4 (07:28→21:02)
[2020-05-19] MEDS: *HR* Pioglitazone 15 MG TABLET PO SCH (08:30)
[2020-05-19] MEDS: FLUoxetine 20 MG CAPSULE PO SCH (08:30)
[2020-05-19] MEDS: Cholecalciferol (D-3) 1,000 UNIT (25MCG) TABLET PO SCH (08:30)
[2020-05-19] MEDS: Folic Acid 1 MG TABLET PO SCH (08:30)
[2020-05-19] MEDS: Aspirin Enteric Coated 325 MG Tablet PO SCH (08:30)
[2020-05-19] MEDS: Multivit/Ca/Min/Fe/FA 1 TAB TABLET PO SCH (08:30)
[2020-05-19] MEDS: Nystatin POWDER 30 GM BOTTLE TP SCH ×2 (08:37→21:01)
[2020-05-20] MEDS: Acetaminophen 325 MG TABLET PO PRN (00:47)
[2020-05-20] MEDS: Insulin LISPRO 300 UNITS/3 ML VIAL SQ SCH ×3 (08:22→16:16)
[2020-05-20] MEDS: Aspirin Enteric Coated 325 MG Tablet PO SCH (08:26)
[2020-05-20] MEDS: *HR* Pioglitazone 15 MG TABLET PO SCH (08:26)
[2020-05-20] MEDS: FLUoxetine 20 MG CAPSULE PO SCH (08:27)
[2020-05-20] MEDS: Cholecalciferol (D-3) 1,000 UNIT (25MCG) TABLET PO SCH (08:28)
[2020-05-20] MEDS: Folic Acid 1 MG TABLET PO SCH (08:28)
[2020-05-20] MEDS: Multivit/Ca/Min/Fe/FA 1 TAB TABLET PO SCH (08:28)
[2020-05-20] MEDS: Nystatin POWDER 30 GM BOTTLE TP SCH ×2 (08:28→20:49)
[2020-05-21] MEDS: Acetaminophen 325 MG TABLET PO PRN (03:33)
[2020-05-21] MEDS: Insulin LISPRO 300 UNITS/3 ML VIAL SQ SCH ×5 (03:35→19:57)
[2020-05-21 05:23] LABS: Basophils % 0.5 %; Eosinophils % 0.9 %; Hematocrit 26.7 % (35.3-44.9); Hemoglobin 8.4 g/dL (11.5-15.4); Immature Granulocytes % 0.2 % (0-4); Lymphocytes # 1.8 K/mcL (0.6-4.6); Lymphocytes % 41.1 %; Mean Corpuscular HGB Conc 31.5 g/dL (31.6-35.5); Mean Corpuscular Hemoglobin 28.6 pg (28.0-33.3); Mean Corpuscular Volume 90.8 fL (83.0-100.0); Mean Platelet Volume 9.8 fL (9.4-12.4); Monocytes # 0.5 K/mcL (0.0-1.3); Monocytes % 11.4 %; Platelet Count 152 K/mcL (140-400); Red Blood Count 2.94 M/mcL (3.82-4.97); Red Cell Distribution Width 15.9 % (11.5-14.5); Segmented Neutrophils % 45.9 %; White Blood Count 4.3 K/mcL (4.3-11.1)
[2020-05-21 06:56] LABS: BUN/Creatinine Ratio 23 (6-26); Blood Urea Nitrogen 24 mg/dL (8-23); Calcium 8.1 mg/dL (8.6-10.3); Carbon Dioxide 27 mEq/L (23-29); Chloride 105 mEq/L (98-107); Glucose 102 mg/dL (70-105); Osmolality,Calculated 288 (280-300); Potassium 4.3 mEq/L (3.5-5.1); Sodium 137 mEq/L (136-145); eGFR For African Americans > 60 (> 60); eGFR For Non-African Americans 50 (> 60)
[2020-05-21] MEDS: *HR* Pioglitazone 15 MG TABLET PO SCH (08:11)
[2020-05-21] MEDS: Folic Acid 1 MG TABLET PO SCH (08:11)
[2020-05-21] MEDS: Aspirin Enteric Coated 325 MG Tablet PO SCH (08:11)
[2020-05-21] MEDS: FLUoxetine 20 MG CAPSULE PO SCH (08:11)
[2020-05-21] MEDS: Multivit/Ca/Min/Fe/FA 1 TAB TABLET PO SCH (08:12)
[2020-05-21] MEDS: Cholecalciferol (D-3) 1,000 UNIT (25MCG) TABLET PO SCH (08:12)
[2020-05-21] MEDS: Nystatin POWDER 30 GM BOTTLE TP SCH ×2 (08:12→19:56)
[2020-05-22] MEDS: Insulin LISPRO 300 UNITS/3 ML VIAL SQ SCH ×4 (07:16→20:14)
[2020-05-22] MEDS: FLUoxetine 20 MG CAPSULE PO SCH (08:20)
[2020-05-22] MEDS: Aspirin Enteric Coated 325 MG Tablet PO SCH (08:20)
[2020-05-22] MEDS: *HR* Pioglitazone 15 MG TABLET PO SCH (08:20)
[2020-05-22] MEDS: Cholecalciferol (D-3) 1,000 UNIT (25MCG) TABLET PO SCH (08:43)
[2020-05-22] MEDS: Multivit/Ca/Min/Fe/FA 1 TAB TABLET PO SCH (08:43)
[2020-05-22] MEDS: Folic Acid 1 MG TABLET PO SCH (08:43)
[2020-05-22] MEDS: Nystatin POWDER 30 GM BOTTLE TP SCH ×2 (09:59→20:16)
[2020-05-22] MEDS: Acetaminophen 325 MG TABLET PO PRN (22:09)
[2020-05-23] MEDS: Insulin LISPRO 300 UNITS/3 ML VIAL SQ SCH ×4 (07:39→20:36)
[2020-05-23] MEDS: Folic Acid 1 MG TABLET PO SCH (08:20)
[2020-05-23] MEDS: FLUoxetine 20 MG CAPSULE PO SCH (08:20)
[2020-05-23] MEDS: Aspirin Enteric Coated 325 MG Tablet PO SCH (08:20)
[2020-05-23] MEDS: *HR* Pioglitazone 15 MG TABLET PO SCH (08:20)
[2020-05-23] MEDS: Nystatin POWDER 30 GM BOTTLE TP SCH ×2 (15:50→20:18)
[2020-05-23] MEDS: Acetaminophen 325 MG TABLET PO PRN (20:17)
[2020-05-24] MEDS: Insulin LISPRO 300 UNITS/3 ML VIAL SQ SCH ×4 (08:26→19:59)
[2020-05-24] MEDS: *HR* Pioglitazone 15 MG TABLET PO SCH (08:26)
[2020-05-24] MEDS: Nystatin POWDER 30 GM BOTTLE TP SCH ×2 (08:27→20:06)
[2020-05-24] MEDS: Folic Acid 1 MG TABLET PO SCH (08:27)
[2020-05-24] MEDS: FLUoxetine 20 MG CAPSULE PO SCH (08:27)
[2020-05-24] MEDS: Aspirin Enteric Coated 325 MG Tablet PO SCH (08:27)
[2020-05-24] MEDS: Ondansetron ODT 4 MG TAB.RAPDIS SL PRN (08:31)
[2020-05-25] MEDS: Insulin LISPRO 300 UNITS/3 ML VIAL SQ SCH ×4 (07:48→20:32)
[2020-05-25] MEDS: Aspirin Enteric Coated 325 MG Tablet PO SCH (09:10)
[2020-05-25] MEDS: FLUoxetine 20 MG CAPSULE PO SCH (09:10)
[2020-05-25] MEDS: Folic Acid 1 MG TABLET PO SCH (09:10)
[2020-05-25] MEDS: *HR* Pioglitazone 15 MG TABLET PO SCH (09:10)
[2020-05-25] MEDS: Acetaminophen 325 MG TABLET PO PRN (09:11)
[2020-05-25] MEDS: Ondansetron ODT 4 MG TAB.RAPDIS SL PRN (09:11)
[2020-05-25] MEDS: Nystatin POWDER 30 GM BOTTLE TP SCH ×2 (11:32→20:30)
[2020-05-26] MEDS: Folic Acid 1 MG TABLET PO SCH (08:46)
[2020-05-26] MEDS: Aspirin Enteric Coated 325 MG Tablet PO SCH (08:46)
[2020-05-26] MEDS: *HR* Pioglitazone 15 MG TABLET PO SCH (08:46)
[2020-05-26] MEDS: Nystatin POWDER 30 GM BOTTLE TP SCH ×2 (08:47→20:47)
[2020-05-26] MEDS: FLUoxetine 20 MG CAPSULE PO SCH (08:47)
[2020-05-26] MEDS: Insulin LISPRO 300 UNITS/3 ML VIAL SQ SCH ×4 (10:28→20:49)
[2020-05-27] MEDS: Insulin LISPRO 300 UNITS/3 ML VIAL SQ SCH ×4 (07:57→20:29)
[2020-05-27] MEDS: *HR* Pioglitazone 15 MG TABLET PO SCH (08:00)
[2020-05-27] MEDS: FLUoxetine 20 MG CAPSULE PO SCH (08:00)
[2020-05-27] MEDS: Folic Acid 1 MG TABLET PO SCH (08:00)
[2020-05-27] MEDS: Nystatin POWDER 30 GM BOTTLE TP SCH ×2 (08:00→20:26)
[2020-05-27] MEDS: Aspirin Enteric Coated 325 MG Tablet PO SCH (08:00)
[2020-05-28 07:03] VITALS: BP 121/58
[2020-05-28] MEDS: Insulin LISPRO 300 UNITS/3 ML VIAL SQ SCH ×2 (07:59→12:09)
[2020-05-28] MEDS: Nystatin POWDER 30 GM BOTTLE TP SCH (08:09)
[2020-05-28] MEDS: *HR* Pioglitazone 15 MG TABLET PO SCH (08:09)
[2020-05-28] MEDS: FLUoxetine 20 MG CAPSULE PO SCH (08:09)
[2020-05-28] MEDS: Folic Acid 1 MG TABLET PO SCH (08:09)
[2020-05-28] MEDS: Aspirin Enteric Coated 325 MG Tablet PO SCH (08:09)
== END 2020-05-28 13:22 | disposition home health service (06) | DRG 560 ==
LOC: INPPIK 22:37
PROVIDERS: ADMIT Family Medicine; ATTEND Family Medicine